=== PATIENT | male | born 1940 | race American Indian/Alaskan Native ===

== ENCOUNTER 2017-02-15 09:52 | Outpatient (CLI) | payer MEDICARE, OTHER ==
[2017-02-15 10:31] LABS: Alanine Aminotransferase 15 units/L (7-56); Albumin 3.8 g/dL (3.9-5); Albumin/Globulin Ratio 1.3 %; Alkaline Phosphatase 81 units/L (35-129); Anion Gap 13 mmol/L; BUN/Creatinine Ratio 13.33; Bilirubin,Total 0.5 mg/dL (0.1-1.2); Blood Urea Nitrogen 12 mg/dL (9-20); Calcium 10.4 mg/dL (8.4-10.2); Carbon Dioxide 29 mmol/L (22-30); Chloride 101.5 mmol/L (98-107); Glucose 105 mg/dL (75-100); Potassium 4.3 mmol/L (3.6-5.0); Sodium 139 mmol/L (137-145); Total Protein 6.8 g/dL (6.3-8.2)
[2017-02-15] MEDS ORDERED: NACL ONE (10:31)
--- NOTE | 2017-02-15 11:44 | Cat Scan Report ---
CT CHEST WITH CONTRAST: HISTORY: Superior mediastinal mass. TECHNIQUE: Helical CT following IV contrast. Sagittal and coronal reformatted images. FINDINGS: The thyroid gland is mildly enlarged with scattered hypodense nodules. This probably represents a multinodular goiter. Consider correlation with ultrasound is needed. Heart size is normal. There is no evidence of adenopathy within the mediastinum. Pulmonary reji are free of any mass and the lungs are clear of infiltrates. The pleura is unremarkable. No masses involve the chest wall. Mild osteopenia and mild multilevel thoracic spondylosis are noted. No abnormalities are noted within the upper abdomen. The adrenal glands are normal. IMPRESSION: Mild thyromegaly with scattered hypodense nodules. Probable multinodular goiter. Otherwise, unremarkable CT chest with contrast.
== END 2017-02-15 09:53 | disposition home or self-care (01) ==
LOC: CT 09:52
PROVIDERS: ATTEND Internal Medicine
DX: R91.8 Other nonspecific abnormal finding of lung field (principal); E01.0 Iodine-deficiency related diffuse (endemic) goiter; M85.80 Other specified disorders of bone density and structure, unspecified site; M47.894 Other spondylosis, thoracic region
CPT/HCPCS: 36415; 71260; 80053; Q9967

== ENCOUNTER 2017-03-01 10:09 | Outpatient (CLI) | payer MEDICARE, OTHER ==
[2017-03-01] MEDS ORDERED: NACL ONE (11:14)
--- NOTE | 2017-03-01 12:13 | Cat Scan Report ---
CT of the neck with IV contrast. History: Goiter. Findings: Comparison is made to a previous study performed on August 07, 2014. The parotid and submandibular glands appear normal. No abnormal fluid collections or cystic masses. There is no evidence of cervical adenopathy. Motion artifact degrades image quality especially in the region of the larynx which is poorly evaluated. The left lobe of the thyroid is enlarged. A heterogeneously enhancing nodule in the lower pole of the left lobe measures 4.2 cm in diameter with no significant change since the study in 2013. No other focal abnormalities are seen. Impression: Stable left thyroid nodule.
== END 2017-03-01 10:10 | disposition home or self-care (01) ==
LOC: CT 10:09
PROVIDERS: ATTEND Internal Medicine
DX: E04.9 Nontoxic goiter, unspecified (principal)
CPT/HCPCS: 70491; Q9967

== ENCOUNTER 2017-07-08 17:58 | Emergency (ER) | payer MEDICARE, OTHER ==
[2017-07-08 18:53] LABS: Basophils % (Auto) 0.5 % (0.0-1.8); Eosinophils % (Auto) 3.4 % (0.0-4.3); Hematocrit 41.4 % (35.5-45.6); Hemoglobin 13.9 gm/dl (11.8-15.2); Mean Corpuscular HGB Conc 34 % (32-34); Mean Corpuscular Hemoglobin 31 pg (28-32); Mean Corpuscular Volume 92 fl (84-94); Platelet Count 153 K/mm3 (140-440); Red Blood Count 4.51 M/mm3 (3.65-5.03); Red Cell Distribution Width 14.5 % (13.2-15.2); White Blood Count 3.9 K/mm3 (4.5-11.0)
[2017-07-08 19:24] LABS: Alanine Aminotransferase 12 units/L (7-56); Albumin 3.9 g/dL (3.9-5); Albumin/Globulin Ratio 1.4 %; Alkaline Phosphatase 70 units/L (35-129); Anion Gap 15 mmol/L; Blood Urea Nitrogen 14 mg/dL (9-20); Calcium 9.8 mg/dL (8.4-10.2); Carbon Dioxide 29 mmol/L (22-30); Chloride 98.6 mmol/L (98-107); Glucose 102 mg/dL (75-100); Lipase 20 units/L (13-60); Potassium 4.2 mmol/L (3.6-5.0); Sodium 138 mmol/L (137-145); Total Protein 6.6 g/dL (6.3-8.2)
[2017-07-08 20:38] LABS: Bilirubin,Urine NEG (Negative); Blood,Urine SM (Negative); Ketones,Urine NEG (Negative); Leukocyte Esterase,Urine NEG (Negative); Nitrite,Urine NEG (Negative); Protein,Urine <15 mg/dL mg/dL (Negative); Urobilinogen,Urine < 2.0 mg/dL (<2.0)
[2017-07-08 20:47] VITALS: BP 151/81
[2017-07-08] MEDS ORDERED: ANTIVERT PO ONE (21:15)
--- NOTE | 2017-07-08 21:53 | Emergency Department Report ---
ED Dizziness HPI - General Chief Complaint: Abdominal Pain Stated Complaint: DIZZY, BLOOD IN URINE Time Seen by Provider: 07/08/17 20:38 Source: patient, old records reviewed (evaluated by myself in the past for dizziness and musculoskeletal pain) Mode of arrival: Ambulatory Limitations: No Limitations - History of Present Illness Initial Comments: 76-year-old male with a past medical history hypertension presents to the hospital with complains of intermittent dizziness today and and discolored urine. Patient states she's been dizzy throughout the day. She described as a lightheadedness with then patient states when he turns his head in either direction does have like a moving sensation. Positive nausea earlier but none currently. No vomiting, fever, or focal weakness. Patient has had ongoing cough productive of clear to yellow sputum. No chest pain reported. Patient noticed dark/bloody discolored urine today. Denies dysuria or difficulty urinating. Patient has chronic lower back pain and chronic generalized joint pain and neck pain that are unchanged. Patient walks with a cane at his baseline. History of prostate cancer elicited after reviewing CAT scan - Related Data Previous Rx's Medication Instructions Recorded Last Taken Type Azelastine HCl [Optivar] 1 drop OP BID #6 ml 06/23/14 Unknown Rx Cyclobenzaprine [Flexeril 10mg] 10 mg PO TID PRN #14 tablet 07/09/14 Unknown Rx HYDROcodone/APAP 5-325 [[place] 1 each PO Q6HR PRN #14 tablet 07/09/14 Unknown Rx 5/325] Cyclobenzaprine [Flexeril 10 MG 10 mg PO TID PRN #14 tablet 07/23/14 Unknown Rx TAB] Carbamide Peroxide 6.5% [Ear Wax 2 drops OS BID #1 bottle 08/07/14 Unknown Rx Drops] Walker [Ultra-Light Rollator] 1 each MC PRN #1 each 08/07/14 Unknown Rx Docusate Sodium [Colace] 100 mg PO BID PRN #60 capsule 12/24/14 Unknown Rx Cyclobenzaprine HCl [Flexeril 5 MG 5 mg PO Q8HR PRN #15 tab 11/21/15 Unknown Rx TAB] HYDROcodone/APAP 5-325 [[place] 1 each PO Q6HR PRN #20 tablet 11/25/15 Unknown Rx 5-325 mg TAB] Meclizine [Antivert] 25 mg PO TID PRN #30 tablet 07/08/17 Unknown Rx Allergies Allergy/AdvReac Type Severity Reaction Status Date / Time aspirin AdvReac hx ulcers Verified 11/21/15 11:51 ED Review of Systems ROS: Stated complaint: DIZZY, BLOOD IN URINE Other details as noted in HPI Comment: All other systems reviewed and negative Other: Constitutional: No fevers chills Eyes: No eye pain visual changes ENT: No ear pain or throat pain Neck: Denies pain Respiratory: Denies wheezing shortness of breath Cardiovascular: Denies chest pain, palpitations, syncope GI: Denies abdominal pain : As per HPI Musculoskeletal: As per HPI Skin: Denies rash, lesions, erythema Neurologic: Denies headache, numbness, weakness Psychiatric: Denies suicidal ideation, hallucinations ED Past Medical Hx - Past Medical History Previous Medical History?: Yes Hx Hypertension: Yes Hx of Cancer: Yes (prostate cancer) Additional medical history: genital herpes. Ulcers - Surgical History Past Surgical History?: Yes Additional Surgical History: "ulcer surgery". left shoulder surgery - Social History Smoking Status: Current Every Day Smoker - Medications Home Medications: Home Medications Medication Instructions Recorded Confirmed Last Taken Type Azelastine HCl [Optivar] 1 drop OP BID #6 ml 06/23/14 Unknown Rx Cyclobenzaprine [Flexeril 10mg] 10 mg PO TID PRN #14 tablet 07/09/14 Unknown Rx HYDROcodone/APAP 5-325 [[place] 1 each PO Q6HR PRN #14 tablet 07/09/14 Unknown Rx 5/325] Cyclobenzaprine [Flexeril 10 MG 10 mg PO TID PRN #14 tablet 07/23/14 Unknown Rx TAB] Carbamide Peroxide 6.5% [Ear Wax 2 drops OS BID #1 bottle 08/07/14 Unknown Rx Drops] Walker [Ultra-Light Rollator] 1 each MC PRN #1 each 08/07/14 Unknown Rx Docusate Sodium [Colace] 100 mg PO BID PRN #60 capsule 12/24/14 Unknown Rx Cyclobenzaprine HCl [Flexeril 5 MG 5 mg PO Q8HR PRN #15 tab 11/21/15 Unknown Rx TAB] HYDROcodone/APAP 5-325 [[place] 1 each PO Q6HR PRN #20 tablet 11/25/15 Unknown Rx 5-325 mg TAB] Meclizine [Antivert] 25 mg PO TID PRN #30 tablet 07/08/17 Unknown Rx ED Physical Exam - General Limitations: No Limitations - Other Other exam information: General: No limitations, patient is alert in no acute distress Head exam: Atraumatic, normocephalic Eyes exam: Normal appearance, pupils equal reactive to light, extraocular movements intact, no nystagmus ENT: Moist mucous membrane, normal oropharynx Neck exam: Normal inspection, full range of motion, no meningismus nontender Respiratory exam: Clear to auscultation bilateral, no wheezes, rales, crackles Cardiovascular: Normal rate and rhythm, normal heart sounds Abdomen: Soft, nondistended, and nontender, with normal bowel sounds, no rebound, or guarding Extremity: Full range of motion normal inspection no deformity Back: Normal Inspection, full range of motion, no tenderness Neurologic: Alert, oriented x3, cranial nerves intact, no motor or sensory deficit, [id number] intact Psychiatric: normal affect, normal mood Skin: Warm, dry, intact ED Course Vital Signs 07/08/17 07/08/17 18:20 20:46 Temperature 99.2 F Pulse Rate 90 85 Respiratory 20 20 Rate Blood Pressure 147/94 Blood Pressure 151/81 [Left] O2 Sat by Pulse 97 97 Oximetry - Reevaluation(s) Reevaluation #1: 07/08/17 21:52 Orthostatic vital signs unremarkable and patient was asymptomatic with standing. Meclizine ordered ED Medical Decision Making - Lab Data Result diagrams: 07/08/17 18:39 07/08/17 18:39 Lab Results 07/08/17 07/08/17 07/08/17 Range/Units 18:39 18:39 20:00 WBC 3.9 L (4.5-11.0) K/mm3 RBC 4.51 (3.65-5.03) M/mm3 Hgb 13.9 (11.8-15.2) gm/dl Hct 41.4 (35.5-45.6) % MCV 92 (84-94) fl MCH 31 (28-32) pg MCHC 34 (32-34) % RDW 14.5 (13.2-15.2) % Plt Count 153 (140-440) K/mm3 Lymph % (Auto) 31.6 (13.4-35.0) % Tucker % (Auto) 8.2 H (0.0-7.3) % Eos % (Auto) 3.4 (0.0-4.3) % Baso % (Auto) 0.5 (0.0-1.8) % Lymph # 1.2 (1.2-5.4) K/mm3 Tucker # 0.3 (0.0-0.8) K/mm3 Eos # 0.1 (0.0-0.4) K/mm3 Baso # 0.0 (0.0-0.1) K/mm3 Seg Neutrophils % 56.3 (40.0-70.0) % Seg Neutrophils # 2.2 (1.8-7.7) K/mm3 Sodium 138 (137-145) mmol/L Potassium 4.2 (3.6-5.0) mmol/L Chloride 98.6 (98-107) mmol/L Carbon Dioxide 29 (22-30) mmol/L Anion Gap 15 mmol/L BUN 14 (9-20) mg/dL Creatinine 0.8 (0.8-1.5) mg/dL Estimated GFR > 60 ml/min BUN/Creatinine Ratio 17.50 % Glucose 102 H (75-100) mg/dL Calcium 9.8 (8.4-10.2) mg/dL Total Bilirubin 0.30 (0.1-1.2) mg/dL AST 13 (5-40) units/L ALT 12 (7-56) units/L Alkaline Phosphatase 70 (35-129) units/L Total Protein 6.6 (6.3-8.2) g/dL Albumin 3.9 (3.9-5) g/dL Albumin/Globulin Ratio 1.4 % Lipase 20 (13-60) units/L Urine Color Yellow (Yellow) Urine Turbidity Clear (Clear) Urine pH 6.0 (5.0-7.0) Ur Specific [place] 1.015 (1.003-1.030) Urine Protein <15 mg/dl (Negative) mg/dL Urine Glucose (UA) Neg (Negative) mg/dL Urine Ketones Neg (Negative) mg/dL Urine Blood Sm (Negative) Urine Nitrite Neg (Negative) Urine Bilirubin Neg (Negative) Urine Urobilinogen < 2.0 (<2.0) mg/dL Ur Leukocyte Esterase Neg (Negative) Urine WBC (Auto) 1.0 (0.0-6.0) /HPF Urine RBC (Auto) 13.0 (0.0-6.0) /HPF U Epithel Cells (Auto) < 1.0 (0-13.0) /HPF - Radiology Data Radiology results: report reviewed, image reviewed (chest x-ray: naf) CT abdomen and pelvis noncontrast: Tiny gallstones. No biliary duct dilatation. Tiny kidney stones. No hydro-nephrosis or hydroureter. 1 cm hypodensity in the left kidney could be cyst. Intestines unremarkable. [place] seeds and prostate - Medical Decision Making Patient ambulating throughout the ED of the meclizine and states he feels much better without any further dizziness. No signs of pneumonia. No pain reported at this time. Patient will be treated with meclizine for vertigo. Informed of incidental CT findings and urology follow-up recommended given history of prostate cancer - Differential Diagnosis vertigo, UTI, dehydration, renal colic, pneumonia, Critical Care Time: No Critical care attestation.: If time is entered above; I have spent that time in minutes in the direct care of this critically ill patient, excluding procedure time. ED Disposition Clinical Impression: Vertigo, Hx of prostatic malignancy, Hematuria, Kidney stones, Gallstones Disposition: DC-01 TO HOME OR SELFCARE Is pt being admited?: No Does the pt Need Aspirin: No Condition: Stable Instructions: Vertigo (ED), Acute Hematuria (ED) Additional Instructions: Take the medication as needed for dizziness. Follow up with your primary care doctor and an urologist for further evaluation. Return if symptoms worsen. Prescriptions: Meclizine [Antivert] 25 mg PO TID PRN #30 tablet PRN Reason: Vertigo Referrals: PRIMARY CAREMD [Primary Care Provider] - 3-5 Days FELICIA ANTONIO MD [Staff Physician] - 3-5 Days (Urology) Time of Disposition: 22:49
--- NOTE | 2017-07-08 22:31 | Cat Scan Report ---
FINAL REPORT PROCEDURE: CT ABDOMEN PELVIS WO CON TECHNIQUE: Computerized axial tomography of the abdomen and pelvis was performed without intravenous contrast. This study is performed without intravascular contrast material and its sensitivity for abdominal and pelvic pathology, including neoplasms, inflammation, abscess, free fluid, thrombosis, arterial dissection and infarction, is reduced compared with a contrast enhanced study. HISTORY: blood in urine COMPARISON: No prior studies are available for comparison. FINDINGS: Visualized lower thorax: No significant abnormality. Liver: Normal size and attenuation. Spleen: Normal size and attenuation. Gallbladder and biliary system: There are tiny gallstones. There is no biliary ductal dilatation.. Pancreas: Normal. Adrenals: Normal. Kidneys: There are tiny kidney stones. There is no hydronephrosis or hydroureter. There is a 1 centimeter hypodensity in the left kidney which could be a cyst.. GI tract: There is no bowel obstruction, colitis or enteritis. There has been an appendectomy.. Lymph nodes and mesentery: Normal. Vasculature: Normal. Bladder: Normal. Reproductive organs: There are radium seeds in the prostate.. Peritoneum: There is no ascites or free air, abscess or adenopathy.. Musculoskeletal structures: No significant abnormality. Other: None. IMPRESSION: There are tiny gallstones. There is no biliary ductal dilatation.. There are tiny kidney stones. There is no hydronephrosis or hydroureter. There is a 1 centimeter hypodensity in the left kidney which could be a cyst.. There is no bowel obstruction, colitis or enteritis. There has been an appendectomy.. There are radium seeds in the prostate.. There is no ascites or free air, abscess or adenopathy.. .
--- NOTE | 2017-07-09 07:30 | XRay Report ---
CHEST 2 VIEWS INDICATION: Cough. COMPARISON: 02/15/[address] FINDINGS: Frontal and lateral chest radiographs demonstrate normal cardiomediastinal silhouette, aortic knob calcifications and clear lungs. EKG leads. Various bony degenerative changes noted, advanced at the left shoulder. CONCLUSION: No acute chest process, as described. Thank you for the opportunity to participate in this patient's care.
== END 2017-07-08 23:09 | disposition home or self-care (01) ==
LOC: ED 17:58
DX: R42 Dizziness and giddiness (principal); R31.9 Hematuria, unspecified; N20.0 Calculus of kidney; K80.80 Other cholelithiasis without obstruction; I10 Essential (primary) hypertension; F17.200 Nicotine dependence, unspecified, uncomplicated; Z85.46 Personal history of malignant neoplasm of prostate; Z79.82 Long term (current) use of aspirin
CPT/HCPCS: 36415; 71020; 74176; 80053; 81001; 83690; 85025

== ENCOUNTER 2018-05-30 14:11 | Outpatient (CLI) | payer MEDICARE, OTHER ==
--- NOTE | 2018-05-31 07:31 | Magnetic Resonance Report ---
MRI OF THE BRAIN WITHOUT CONTRAST: HISTORY: Dementia, dizziness PROCEDURE: Multiplanar, multisequence MR imaging of the brain without IV contrast was performed. COMPARISON: No relevant comparison at this facility. FINDINGS: Moderate diffuse cortical volume loss is evident. Volume loss is most pronounced in the perisylvian regions bilaterally. Minimal nonspecific chronic periventricular white matter changes are identified which appear appropriate for this person's age. Otherwise, the brain parenchyma signal intensity and its ferreira-white interface are within normal limits on all sequences. No evidence for acute ischemia, hemorrhage or mass. No chronic infarct or extra-axial fluid collection. The midline structures are central. The basal cisterns are patent. Normal ventricular size. The orbital cavities and sella turcica demonstrate no abnormality. The visualized paranasal sinuses and mastoid air cells are well aerated. IMPRESSION: Moderate volume loss and minimal nonspecific chronic white matter changes. No acute intracranial process.
--- NOTE | 2018-05-31 07:33 | Magnetic Resonance Report ---
MRA HEAD WITHOUT CONTRAST HISTORY: Dementia, dizziness. [id number] imaging with MIP reformations of the [place] of [place] is submitted. The arteries appear widely patent and free of hemodynamically significant stenosis, aneurysm or dissection. There is origin of the right [employer]. A moderate sized left posterior communicating artery is identified. IMPRESSION: Normal variant MRA head. No evidence for stenosis or large vessel occlusion.
== END 2018-05-30 14:12 | disposition home or self-care (01) ==
LOC: MRI 14:11
PROVIDERS: ATTEND Internal Medicine
DX: F03.90 Unspecified dementia, unspecified severity, without behavioral disturbance, psychotic disturbance, mood disturbance, and anxiety (principal); I10 Essential (primary) hypertension; R42 Dizziness and giddiness; Z88.6 Allergy status to analgesic agent
CPT/HCPCS: 70544; 70551

== ENCOUNTER 2019-08-30 09:18 | Outpatient (CLI) | payer MEDICARE, OTHER ==
[2019-08-30 09:55] LABS: Hematocrit 36.7 % (35.5-45.6); Hemoglobin 11.8 gm/dl (11.8-15.2); Mean Corpuscular HGB Conc 32 % (32-34); Mean Corpuscular Volume 92 fl (84-94); Platelet Count 178 K/mm3 (140-440); Red Cell Distribution Width 14.7 % (13.2-15.2)
[2019-08-30 10:19] LABS: BUN/Creatinine Ratio 16; Blood Urea Nitrogen 13 mg/dL (9-20)
[2019-08-30 10:20] LABS: Alanine Aminotransferase 16 units/L (7-56); Albumin 3.8 g/dL (3.9-5); Hemolysis Index 19
[2019-09-03 13:46] LABS: Vitamin D, 25-OH, D2 <4 ng/mL
== END 2019-08-30 09:19 | disposition home or self-care (01) ==
LOC: LAB 09:18
PROVIDERS: ATTEND Specialist
DX: F02.80 Dementia in other diseases classified elsewhere, unspecified severity, without behavioral disturbance, psychotic disturbance, mood disturbance, and anxiety (principal); I10 Essential (primary) hypertension; Z79.899 Other long term (current) drug therapy; Z11.59 Encounter for screening for other viral diseases
CPT/HCPCS: 36415; 80053; 82306; 82607; 83036; 83921; 84443; 85027; 86592

== ENCOUNTER 2022-02-13 08:08 | Day surgery (SDC) | payer MEDICARE, OTHER ==
[2022-02-04 12:23] LABS: Hematocrit 42.1 % (35.5-45.6); Hemoglobin 13.6 gm/dl (11.8-15.2); Mean Corpuscular HGB Conc 32 % (32-34); Mean Corpuscular Volume 96 fl (84-94); Platelet Count 31 K/mm3 (140-440); Red Blood Count 4.41 M/mm3 (3.65-5.03)
--- NOTE | 2022-02-04 15:54 | Anesthesia Consultation ---
Anesthesia Consult and Med Hx Date of service: 02/13/22 - Airway Anesthetic Teeth Evaluation: Good (lower), Edentulous (upper) Mental/Hyoid Distance: Adequate Mallampati Class: Class II Intubation Access Assessment: Probably Good - Pulmonary Exam CTA: Yes - Cardiac Exam Cardiac Exam: RRR (grade 3/6 murmur) - Pre-Operative Health Status ASA Pre-Surgery Classification: ASA3 Proposed Anesthetic Plan: General - Pulmonary Hx Smoking: Yes (quit 2 wks ago; previuously 1/2 PPD) COPD: Yes (albuterol prn) Home Oxygen Therapy: No Hx Sleep Apnea: No (ABILIO PRE SCREEN HIGH RISK) - Cardiovascular System Hx Hypertension: Yes Hx Coronary Artery Disease: Yes (s/p stent 2020; will stop ASA 02/06/22) Hx Heart Attack/AMI: No Hx Cardia Arrhythmia: No Hx Valvular Heart Disease: Yes ( s/p TAVR 2019; mean gradient across valve 14 on recent TTE) Hx Peripheral Vascular Disease: Yes - Central Nervous System CVA: No Hx Psychiatric Problems: Yes (mild dementia, depression) - Endocrine Hx Renal Disease: No Hx Liver Disease: No Hx Insulin Dependent Diabetes: No Hx Non-Insulin Dependent Diabetes: No Hx Thyroid Disease: No - Hematic Hx Anemia: No (thrombocytopenia noted on PAT labs) - Other Systems Hx Obesity: Yes (BMI 32) - Additional Comments Anesthesia Medical History Comments: No hx anesthetic complications. Labs drawn in PAT significant for leukopenia and thrombocytopenia. Nurse will alert patient to instruct him to see PCP for eval as soon as possible. Evaluation will be required prior to planned surgery, especially given severity of thrombocytopenia. Surgeon's office made aware.
[~2022-02-13 08:08] MED LIST: ACETAMINOPHEN 325 MG TAB PO SCH; GABAPENTIN 500 MG/10 ML ORAL LIQD PO NR; LACTATED RINGERS 1,000 ML IV SCH; ceFAZolin/Water 2 GM/20 ML 2 GM/20 ML SYRINGE IV NR
[2022-02-13] MEDS ORDERED: ceFAZolin/STERILE WATER 2 GM/20 ML SYRINGE IV NR (09:00)
[2022-02-13 09:15] LABS: Alanine Aminotransferase 26 units/L (7-56); Albumin 3.6 g/dL (3.9-5); BUN/Creatinine Ratio 12; Blood Urea Nitrogen 11 mg/dL (9-20); Calcium 10.1 mg/dL (8.4-10.2); Hemolysis Index 8
[2022-02-13] MEDS ORDERED: HYDROmorphone 1 MG/1 ML INJ IV PRN ×2 (09:44)
[2022-02-13] MEDS ORDERED: ONDANSETRON 4 MG/2 ML INJ IV PRN (09:44)
--- NOTE | 2022-02-13 09:44 | Anesthesia Day of Surgery ---
Anesthesia Day of Surgery - Day of Surgery Patient Examined: Yes Patient H&P Reviewed: Yes Patient is NPO: Yes
[2022-02-13] MEDS ORDERED: LIDOCAINE MPF (2%) 20 MG/1 ML VIAL 5 ML ONE (09:48)
[2022-02-13] MEDS ORDERED: ROCURONIUM 50 MG/5 ML INJ IV ONE (09:48)
[2022-02-13] MEDS ORDERED: fentaNYL 100 MCG/2 ML INJ ONE (09:49)
[2022-02-13] MEDS ORDERED: propofoL 200 MG/20 ML VIAL IV ONE (09:49)
[2022-02-13] MEDS ORDERED: LIDOCAINE (1%) 10 MG/1 ML VIAL 20 ML MDV ONE (09:54)
[2022-02-13] MEDS ORDERED: BUPIVACAINE/PF (0.5%) 5 MG/1 ML 30 ML VIAL INFILTRATI ONE ×2 (09:54→11:43)
[2022-02-13] MEDS ORDERED: NEOSTIGMINE 10MG/10 ML INJ MDV ONE (10:38)
[2022-02-13] MEDS ORDERED: dexAMETHasone 20 MG/5 ML VIAL ONE (10:38)
[2022-02-13] MEDS ORDERED: ONDANSETRON 4 MG/2 ML INJ ONE (10:38)
[2022-02-13] MEDS ORDERED: GLYCOPYRROLATE 0.4 MG/2 ML INJ ONE (10:38)
[2022-02-13] MEDS ORDERED: ePHEDrine SULFATE 50 MG/1 ML INJ ONE (10:38)
[2022-02-13] MEDS ORDERED: LIDOCAINE (1%) 10 MG/1 ML VIAL 20 ML MDV INFILTRATI ONE (11:43)
[2022-02-13] MEDS ORDERED: WATER FOR IRRIG STERILE 1,500 ML BOTTLE IR ONE (11:44)
[2022-02-13] MEDS ORDERED: SODIUM CHLORIDE 0.9% IRR 1,500 ML BOTTLE IR ONE (11:44)
--- NOTE | 2022-02-13 12:30 | Short Stay Summary ---
Short Stay Documentation Date of service: 02/13/22 - History Principal diagnosis: left inguinal hernia H&P: obtained from office - Allergies and Medications Current Medications: Allergies aspirin Adverse Reaction (Verified 02/02/22 15:41) Nausea , VOMITING, NERVOUSNESS lactose Adverse Reaction (Verified 02/02/22 15:39) Nausea Home Medications Medication Instructions Recorded Confirmed Last Taken Type Albuterol Sulfate [Proventil Hfa] 2 puff IH PRN PRN 02/02/22 02/02/22 Unknown History Aspirin [[place] Aspirin EC] 81 mg PO DAILY 02/02/22 02/13/22 02/06/22 History AtorvaSTATin [Lipitor] 10 mg PO QHS 02/02/22 02/02/22 02/12/22 History Cholecalciferol (Vitamin D3) 5,000 unit PO DAILY 02/02/22 02/02/22 02/12/22 History [Vitamin D3 5,000 UNIT] Docusate Sodium [Colace] 100 mg PO BID 02/02/22 02/13/22 02/12/22 History Ferrous Sulfate [Iron 325 MG] 325 mg PO DAILY 02/02/22 02/02/22 02/12/22 History Lisinopril/Hydrochlorothiazide 1 each PO DAILY 02/02/22 02/02/22 02/12/22 His tory [Zestoretic 10-12.5 mg Tablet] Meclizine [Antivert] 25 mg PO BID 02/02/22 02/04/22 02/12/22 History Meloxicam [Mobic] 7.5 mg PO QDAY 02/02/22 02/02/22 02/12/22 History Multivit-Mins/Iron/Folic/Lycop 1 each PO DAILY 02/02/22 02/02/22 02/12/22 History [Centrum Men's Tablet] Pantoprazole [Protonix] 40 mg PO BID 02/02/22 02/02/22 02/12/22 History Memantine [Namenda] 10 mg PO BID 02/04/22 02/04/22 02/12/22 History donepeziL [Aricept] 10 mg PO QDAY 02/04/22 02/04/22 02/12/22 History Active Medications Acetaminophen (Acetaminophen 325 Mg Tab) 650 mg PO PREOP RANJIT Last Admin: 04/15/22 08:47 Dose: 650 mg Cefazolin Sodium (Cefazolin/Sterile Water 2 Gm/20 Ml Syringe) 2 gm IV PREOP NR Stop: 02/13/22 23:59 Gabapentin (Gabapentin 500 Mg/10 Ml Oral Liqd) 150 mg PO PREOP NR Stop: 02/13/22 23:59 Last Admin: 02/13/22 08:45 Dose: 150 mg Hydromorphone HCl (Hydromorphone 1 Mg/1 Ml Inj) 0.25 mg IV Q10MIN PRN PRN Reason: Pain, Moderate (4-6) Stop: 02/13/22 22:00 Hydromorphone HCl (Hydromorphone 1 Mg/1 Ml Inj) 0.5 mg IV Q10MIN PRN PRN Reason: Pain , Severe (7-10) Stop: 02/13/22 23:00 Cefazolin Sodium (Ancef/Sterile Water 2 Gm/20 Ml) 2 gm in 20 mls @ 80 mls/hr IV PREOP NR; Protocol Stop: 02/13/22 16:00 Lactated Ringer's (Lactated Ringers) 1,000 mls @ 100 mls/hr IV DIRECT RANJIT Stop: 02/13/22 23:59 Last Admin: 02/13/22 08:45 Dose: 100 mls/hr - Brief post op/procedure progress note Date of procedure: 02/13/22 Pre-op diagnosis: left inguinal hernia Post-op diagnosis: same Procedure: laparoscopic lysis of adhesions, open left inguinal hernia repair with mesh Anesthesia: GETA, local Findings: Diffuse dense adhesions from small bowel and omentum to anterior abdominal wall. Direct L inguinal hernia Surgeon: SINA VAZQUEZ Inspector Plating: KACEY POTTS Estimated blood loss: minimal Pathology: none Condition: stable - Hospital course Hospital course: Pt observed in PACU and discharged to home in stable condition when criteria met - Disposition Condition at discharge: Good Short Stay Discharge Plan Activity: no driving until cleared by PCP (UNTIL SEEN BY SURGEON) Wound: open to air, per your surgeon's advice Additional Instructions: SEE PRINTED INSTRUCTIONS Follow up with: PRIMARY CARE, [Primary Care Provider] - 7 Days SINA VAZQUEZ DO [Staff Physician] - 14 Days Prescriptions: HYDROcodone/APAP 5-325 [[place] 5/325] 1 each PO Q6HR PRN #25 tablet PRN Reason: Pain , Severe (7-10)
--- NOTE | 2022-02-13 13:20 | Operative Report ---
Operative Report Operative Report: Date of procedure: 02/13/22 Pre-op diagnosis: left inguinal hernia Post-op diagnosis: same Procedure: laparoscopic lysis of adhesions, open left inguinal hernia repair with mesh Anesthesia: GETA, local Findings: Diffuse dense adhesions from small bowel and omentum to anterior abdominal wall. Direct L inguinal hernia Surgeon: SINA VAZQUEZ Felt Checker: KACEY POTTS Estimated blood loss: minimal Pathology: none Condition: stable Hospital course: Pt observed in PACU and discharged to home in stable condition when criteria met Condition at discharge: Good HPI and indication: Patient is an 81-year-old male with multiple medical comorbidities who presented to the surgery clinic for evaluation of a left inguinal hernia. The hernia was reducible and tender at times. After being evaluated by cardiology for a preoperative risk assessment, the patient was deemed high risk but optimized for the proposed inguinal hernia repair. All risks, benefits, alternatives to surgery were discussed with the patient and his . These risks included but were not limited to infection, bleeding, injury to surrounding structures, hernia recurrence, conversion to open surgery, perioperative cardiac event. After much discussion, the patient elected to proceed with hernia repair because he was symptomatic and the hernia was giving him discomfort on a daily basis. Consent was obtained for robotic assisted left inguinal hernia repair, possible bilateral, possible open, mesh placement. Patient had a previous midline incision from a history of colon cancer. Procedure in detail: Patient was identified in the preoperative area, taken back to the operating room and placed on the operating room table in supine position. After anesthesia was induced bilateral arms were tucked and all bony prominences padded appropriately. A Hunter catheter was sterilely placed by the circulating nurse. Local anesthetic was infiltrated into all skin incision sites. An OG tube had been placed by anesthesia. A rina incision was made in the left upper quadrant through which a Veress needle was inserted. The Veress needle position was confirmed using the saline drop test and the abdomen insufflated to 15 mmHg. A left upper quadrant 5 mm incision was made through which a 5mm Optiview trocar was placed. The abdomen was inspected and there was no underlying injury to the abdominal structures. The Veress needle was identified and removed. Upon initial inspection of the abdomen there were diffuse, dense adhesions from the small bowel and omentum to the anterior abdominal wall starting in the upper abdomen and extending down into the pelvic area. The pelvis was able to be examined around these adhesions and there appeared to be a large left direct inguinal hernia and no hernia on the right. An additional left lateral lower abdominal 5 mm trocar was placed under direct visualization. I then proceeded to perform a very meticulous lysis of adhesions using a combination of blunt dissection, sharp dissection with a EndoShears, and LigaSure. As I proceeded with a lysis of adhesions there appeared to be a mesh in the mid abdomen with bowel densely adhered. Once enough adhesions were taken down a 12 mm epigastric balloon trocar was placed and a right mid abdominal 8 mm robotic trocar. We then proceeded with lysis of adhesions. The small bowel in the midline was very densely adhered to the anterior abdominal wall and I felt the bowel was at increased risk of injury if we continued lysis of adhesions. Therefore it was decided to convert to an open left inguinal hernia repair. The 12 mm trocar was removed and the fascia closed using 0 Vicryl interrupted stitch with a Rogers Holley device. The remainder of the trocars were removed under direct visualization the abdomen desufflated. An incision was made in the left groin correction between the ASIS and pubic tubercle. Dissection was carried down through the skin and subcutaneous tissue using electrocautery until the external oblique fascia was identified. This was incised with a 10 blade and then opened using Metzenbaum scissors in the direction of the fibers. The left ilioinguinal nerve was identified and protected. Hemostat was placed on each leaflet of the external oblique fascia. Using blunt dissection the cord structures and hernia contents were dissected free from the underside of the external oblique fascia. The cord structures were encircled and retracted with a Italo. There was a direct hernia containing fat. The fat was dissected free from the surrounding structures by dissecting the cremasteric fibers. Once this was free it was reduced into the preperitoneal space. There was no indirect component to the hernia. The pubic tubercle was identified. Hemostasis was carefully ensured. At this point I decided to repair the hernia with a large plug and patch mesh. The plug was placed in the preperitoneal space and secured to the pubic tubercle and transversalis fascia using interrupted 2-0 Prolene stitches. The patch was placed in the usual fashion and the apex secured to the pubic tubercle using a interrupted 2-0 Prolene stitch. The lateral and medial aspects of the mesh were sutured to the shelving edge of the inguinal ligament and the transversalis fascia using interrupted 2-0 Prolene stitches at each 1 cm interval. The precut hole in the mesh was placed around the cord structures with adequate room for the cord structures. The 2 flaps were sutured together using an interrupted 2-0 Prolene stitch. This was tucked underneath the external oblique fascia. The external oblique fascia was then reapproximated using a running 3-0 Vicryl stitch. The subcutaneous tissue was irrigated and hemostasis very carefully ensured. Local anesthetic was once again infiltrated into the skin. The deep dermal layer was approximated using interrupted 3-0 Vicryl stitches. The skin of all incisions was approximated using 4-0 Monocryl subcuticular stitches and skin glue. At the end of the case all sponge, instrument, sharp counts were correct x2. The patient was awoken from anesthesia and extubated. The Hunter catheter was removed. He was taken to PACU in stable condition. Patient's was updated of his condition.
[2022-02-13] MEDS ORDERED: LISINOPRIL 20 MG TAB PO NR (16:00)
[2022-02-13] MEDS ORDERED: hydroCHLOROthiazide 12.5 MG CAP PO NR (16:00)
[2022-02-13] MEDS ORDERED: HYDROcodone/ACETAMINOPHEN 5-325 MG TAB ONE (16:48)
--- NOTE | 2022-02-13 18:04 | Post Anesthesia Evaluation ---
- Post Anesthesia Evaluation Patient Participated: Yes Airway Patent: Yes Stable Respiratory Function: Yes Nausea/Vomiting: No Temp > 96.8F: Yes Pain Manageable: Yes Adequeate Hydration: Yes Anesthesia Complications: No Block Receding Appropriately: Not Applicable Patient on Ventilator: No
[2022-02-13 21:28] VITALS: BP 158/82
== END 2022-02-13 08:09 | disposition home or self-care (01) ==
LOC: OR 08:08
PROVIDERS: ATTEND Surgery
DX: K40.90 Unilateral inguinal hernia, without obstruction or gangrene, not specified as recurrent (principal); K66.0 Peritoneal adhesions (postprocedural) (postinfection); I10 Essential (primary) hypertension; I25.10 Atherosclerotic heart disease of native coronary artery without angina pectoris; I73.9 Peripheral vascular disease, unspecified; E78.00 Pure hypercholesterolemia, unspecified; J43.9 Emphysema, unspecified; K21.9 Gastro-esophageal reflux disease without esophagitis; E66.9 Obesity, unspecified; M19.90 Unspecified osteoarthritis, unspecified site; F32.9 Major depressive disorder, single episode, unspecified; Z79.899 Other long term (current) drug therapy; Z20.822 Contact with and (suspected) exposure to COVID-19; Z88.8 Allergy status to other drugs, medicaments and biological substances; Z79.82 Long term (current) use of aspirin; Z87.891 Personal history of nicotine dependence; Z95.2 Presence of prosthetic heart valve; Z68.32 Body mass index [BMI] 32.0-32.9, adult; Z85.46 Personal history of malignant neoplasm of prostate; Z87.442 Personal history of urinary calculi; Z98.890 Other specified postprocedural states
CPT/HCPCS: 36415; 49329; 49505; 80053; 85027; C1781; J0690; J1100; J1815; J2405; J2704; J2710; J3010; J3490; J7120; U0003